=== PATIENT | female | born 1990 | race Caucasian/White ===

== ENCOUNTER 2018-05-17 12:41 | Emergency (ER) | payer OTHER ==
[2018-05-17 12:47] VITALS: BMI 33.1
[2018-05-17 12:49] VITALS: RESP 18; TEMP 98.3
[2018-05-17 13:14] LABS: BASO % 0.6 % (0.0-2.0); EOS # 0.1 K/uL (0.0-0.7); HEMOGLOBIN 12.1 g/dL (12.0-16.0); LYMPH # 1.5 K/uL (1.0-4.3); LYMPH % 21.6 % (20.0-40.0); MEAN CELL VOLUME 92.1 fl (81.0-99.0); MEAN CORPUSCULAR HEMOGLOBIN 31.7 pg (27.0-31.0); MEAN CORPUSCULAR HGB CONC 34.4 g/dL (33.0-37.0); MEAN PLATELET VOLUME 7.1 fl (7.2-11.7); MONO # 0.4 K/uL (0.0-0.8); MONO % 5.4 % (0.0-10.0); NEUT # 4.7 K/uL (1.8-7.0); NEUT % 70.4 % (50.0-75.0); NRBC % 0.1 % (0.0-0.0); RBC 3.83 Mil/uL (3.80-5.20); RED CELL DISTRIBUTION WIDTH 13.7 % (11.5-14.5); WHITE BLOOD COUNT 6.7 K/uL (4.8-10.8)
[2018-05-17 13:28] LABS: BLOOD UREA NITROGEN 9 mg/dl (7-17); CALCIUM 9.2 mg/dL (8.4-10.2); GFR NON-AFRICAN AMERICAN > 60
--- NOTE | 2018-05-17 13:51 | ED PDOC ---
HPI:STROKE - Time Time: 12:55 - Historian Historian: Patient - Chief Complaint Chief Complaint: Numbness - Onset Date: 05/15/18 Onset: Days (x2) - Timing Timing: Persistent - Location Locate right:: Face - Notes: Notes:: 27 y/o female who is 28 weeks presents to the ED with two days worsening right facial numbness symptoms. Patient reports symptoms initially started as tongue numbness that progressed today noted especially around the nose and lips. Otherwise, patient denies headache, pain, change in vision and change in hearing. PMD: Darci Rapp NIHSS Stroke Scale - Date/Time Evaluation Performed Date Performed: 05/17/18 Time Performed: 12:55 When Was NIHSS Performed: Baseline - How Severe is the Stroke Level of Consciousness: 0=Alert LOC to Questions: 0=Both comments correct LOC to commands: 0=Obeys both correctly Best Gaze: 0=Normal Visual: 0=No visual loss Motor Arm - Left: 0=No drift Motor Arm - Right: 0=No drift Motor Leg - Left: 0=No drift Motor Leg - Right: 0=No drift Limb Ataxia: 0=Absent Sensory: 0=Normal Best Language: 0=No aphasia Dysarthia: 0=Normal articulation Extinction & Inattention (Neglect): 0=Normal, no object rTPA Inclusion/Exclusion - Refusal of Treatment Patient Refused Treatment: No - Inclusion Criteria for Altepase Patient is 18 years or Older: Yes The Clinical Diagnosis of Ischemic Stroke That is Causing a Potentially Disabling Neurological Deficit: No Time of Onset is Well Established to be Less Than 270 Minute Before Treatment Would Begin: No Risk/Benefit Discussed With Patient/Family Member Present: No Past Medical History Reviewed: Historical Data, Nursing Documentation, Vital Signs Vital Signs: Last Vital Signs Temp 98.3 F 05/17/18 12:48 Pulse 82 05/17/18 13:43 Resp 18 05/17/18 13:43 BP 104/54 L 05/17/18 13:43 Pulse Ox 96 05/17/18 13:43 - Medical History PMH: No Chronic Diseases - Surgical History Surgical History: No Surg Hx - Family History Family History: States: Unknown Family Hx - Home Medications Home Medications: Ambulatory Orders Medication Instructions Recorded Acyclovir 400 mg PO 5XD #50 tablet 05/17/18 Non-Formulary 1 ea TOP ONCE #1 ea 05/17/18 Pnv No.95/Ferrous Fum/Folic AC 1 tab PO DAILY 05/17/18 [ Vitamin Tablet] predniSONE [predniSONE Tab] 60 mg PO DAILY #21 tab 05/17/18 - Allergies Allergies/Adverse Reactions: Allergies Allergy/AdvReac Type Severity Reaction Status Date / Time No Known Allergies Allergy Verified 05/17/18 12:45 Review of Systems ROS Statement: Except As Marked, All Systems Reviewed And Found Negative Eyes: Negative for: Vision Change ENT: Negative for: Other (changes in hearing) Neurological: Positive for: Numbness (right sided facial numbness). Negative for: Headache Physical Exam - Reviewed Nursing Documentation Reviewed: Yes Vital Signs Reviewed: Yes - Physical Exam Appears: Positive for: No Acute Distress Head Exam: Positive for: ATRAUMATIC Skin: Positive for: Normal Color, Warm, Dry Eye Exam: Positive for: Normal appearance, EOMI, PERRL Neck: Positive for: Normal, Painless ROM Cardiovascular/Chest: Positive for: Regular Rate, Rhythm. Negative for: Murmur Respiratory: Positive for: Normal Breath Sounds. Negative for: Respiratory Distress Gastrointestinal/Abdominal: Positive for: Other (Visibly gravid) Extremity: Positive for: Normal ROM. Negative for: Deformity Neurological/Psych: Positive for: Awake, Alert, Symmetric/Intact Strength (bilaterally), Oriented (x3), Facial Droop (Right facial weakness noted when smiling. Cannot fully close the right eye. 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 Time: 1509 OFFICIAL MRA READ FINDINGS: INTERNAL CAROTID ARTERIES: Unremarkable. The skull base, petrous, cavernous and supraclinoid segments are bilaterally widely patient. ANTERIOR CEREBRAL ARTERIES: Unremarkable. A1 and A2 segments are widely patent. Smaller distal branches unremarkable, as visualized. MIDDLE CEREBRAL ARTERIES: Unremarkable. M1 and M2 segments are widely patent. Perisylvian branches grossly symmetric. POSTERIOR CIRCULATION: Basilar Artery: Unremarkable. Distal Vertebral Arteries: Unremarkable. Posterior Cerebral Arteries: Unremarkable. Posterior Inferior Cerebellar Arteries: Unremarkable. ANEURYSM/ VASCULAR MALFORMATIONS: None. OTHER FINDINGS: None. IMPRESSION: Unremarkable MR angiography of the brain. Time: 1557 -- MRA demonstrated no intracranial pathology. -- Patient evaluated by Dr. Woody who agrees with diagnosis of [place] Palsy. -- Additionally spoke to [facility] director of operations, Dr. Iqbal regarding both prednisone and acyclovir for the patient and states it is safe to prescribe and administer. -- Patient to be discharged home with a prescription of prednisone and acyclovir. Patient given instructions for eye patch wear. Patient to follow up with Dr. Woody in three weeks for further management. Scribe Attestation: Documented by Maria Fernanda Silvestre, acting as a scribe Berna Armas MD. Provider Scribe Attestation: All medical record entries made by the Scribe were at my direction and personal ly dictated by me. I have reviewed the chart and agree that the record accurately reflects my personal performance of the history, physical exam, medical decision making, and the department course for this patient. I have also personally directed, reviewed, and agree with the discharge instructions and disposition. Disposition - Clinical Impression Clinical Impression: [place]'s palsy affecting in third trimester - Disposition Referrals: Justino Woody MD [Medical Doctor] - Disposition: Routine/Home Disposition Time: 15:58 Condition: IMPROVED Additional Instructions: Take medications as prescribed. Use eye patch and eyedrops. Follow up with Dr. Richter (neurologist) in 3 weeks. Return to the emergency department if symptoms worsen or if new symptoms develop. Prescriptions: Acyclovir 400 mg PO 5XD #50 tablet Non-Formulary 1 ea TOP ONCE #1 ea predniSONE [predniSONE Tab] 60 mg PO DAILY #21 tab Instructions: [place]'s Palsy (DC) Forms: [facility] (Bangladeshi), [facility] (Cymraes) Print Language: CROATIAN - POA Present On Arrival: None
--- NOTE | 2018-05-17 15:13 | MRI ---
Date of service: 05/17/2018 PROCEDURE: Magnetic Resonance Angiography Brain HISTORY: right facial weakness COMPARISON: None available. TECHNIQUE: 3D time of flight MR angiography of the intracranial arteries was performed. Rotating maximum intensity projection images were generated. FINDINGS: INTERNAL CAROTID ARTERIES: Unremarkable. The skull base, petrous, cavernous and supraclinoid segments are bilaterally widely patient. ANTERIOR CEREBRAL ARTERIES: Unremarkable. A1 and A2 segments are widely patent. Smaller distal branches unremarkable, as visualized. MIDDLE CEREBRAL ARTERIES: Unremarkable. M1 and M2 segments are widely patent. Perisylvian branches grossly symmetric. POSTERIOR CIRCULATION: Basilar Artery: Unremarkable. Distal Vertebral Arteries: Unremarkable. Posterior Cerebral Arteries: Unremarkable. Posterior Inferior Cerebellar Arteries: Unremarkable. ANEURYSM/ VASCULAR MALFORMATIONS: None. OTHER FINDINGS: None. IMPRESSION: Unremarkable MR angiography of the brain.
[2018-05-17 16:59] VITALS: BP 95/53; PULSE 80
--- NOTE | 2018-05-18 22:36 | CARD ---
APPROVED REPORT Date of service: 05/17/2018 EKG Measurement Heart [id number] <Conclusion> Normal sinus rhythm Normal ECG
[2018-05-19 20:49] VITALS: O2SAT 96
== END 2018-05-17 16:48 | disposition home or self-care (01) ==
LOC: H.ER 12:41
DX: G51.0 Bell's palsy (principal); O99.353 Diseases of the nervous system complicating pregnancy, third trimester